=== PATIENT | female | born 1935 | race Caucasian/White ===

== ENCOUNTER → 2017-08-23 | Outpatient (CLI) | payer MEDICARE ==
[~2017-08-23] MED LIST: ASPIRIN 81MG TA81 MG PO; CELEBREX 100MG100 MG PO; LORAZEPAM1 MG/TABLE PO
[2017-08-23 16:00] LABS: HEMOGLOBIN 13.4 g/dL (12.2-16.2); LYMPH # 2.9 K/mm3 (0.7-4.5); LYMPH % 41.6 % (10-50.0)
[2017-08-23 16:23] LABS: BUN 14 mg/dL (7-18)
[2017-08-23 16:30] LABS: GFR (ESTIMATED) 48 ML/MIN (59-)
[2017-08-25 08:39] LABS: Vitamin D, 25-Hydroxy 34.1 ng/mL (30.0-100.0)
== END ==
LOC: LAB 15:45
PROVIDERS: Nurse Practitioner Family
DX: R53.83 Other fatigue (principal); K21.9 Gastro-esophageal reflux disease without esophagitis; F41.9 Anxiety disorder, unspecified; Z79.899 Other long term (current) drug therapy